=== PATIENT | female | born 1970 | race Caucasian/White ===

== ENCOUNTER 2018-04-09 16:38 | Emergency (ER) | payer OTHER ==
[~2018-04-09] VITALS: Ht 170.2 cm; Wt 83.9 kg
[2018-04-09 17:00] VITALS: BP 129/82; Ht 170.2 cm; Wt 83.9 kg
== END 2018-04-09 19:16 | disposition home or self-care (01) ==
LOC: ED 16:38
DX: J06.9 Acute upper respiratory infection, unspecified (principal); F17.210 Nicotine dependence, cigarettes, uncomplicated; I10 Essential (primary) hypertension; Z86.79 Personal history of other diseases of the circulatory system
CPT/HCPCS: J1100

== ENCOUNTER 2018-04-12 17:41 | Emergency (ER) | payer OTHER ==
[~2018-04-12] VITALS: Ht 165.1 cm; Wt 87.5 kg
[2018-04-12 18:00] VITALS: Ht 165.1 cm; Wt 87.5 kg
[2018-04-12 19:54] VITALS: BP 129/77
== END 2018-04-12 19:54 | disposition home or self-care (01) ==
LOC: ED 17:41
DX: R09.82 Postnasal drip (principal); I10 Essential (primary) hypertension; Z86.79 Personal history of other diseases of the circulatory system

== ENCOUNTER 2019-04-11 12:52 | Emergency (ER) | payer OTHER ==
[~2019-04-11] VITALS: Ht 165.1 cm; Wt 85.3 kg
[2019-04-11 12:56] VITALS: Ht 165.1 cm; Wt 85.3 kg
[2019-04-11 15:31] VITALS: BP 130/85
== END 2019-04-11 15:31 | disposition home or self-care (01) ==
LOC: ED 12:52
DX: J02.9 Acute pharyngitis, unspecified (principal); I10 Essential (primary) hypertension; F17.210 Nicotine dependence, cigarettes, uncomplicated; Z98.890 Other specified postprocedural states
CPT/HCPCS: 87804

== ENCOUNTER 2019-06-25 12:54 | Emergency (ER) | payer OTHER ==
[~2019-06-25] VITALS: Ht 165.1 cm; Wt 85.7 kg
[2019-06-25 13:29] VITALS: BP 130/69; Ht 165.1 cm; Wt 85.7 kg
== END 2019-06-25 15:48 | disposition home or self-care (01) ==
LOC: ED 12:54
DX: S46.912A Strain of unspecified muscle, fascia and tendon at shoulder and upper arm level, left arm, initial encounter (principal); I10 Essential (primary) hypertension; W18.30XA Fall on same level, unspecified, initial encounter; Y93.89 Activity, other specified; Y92.89 Other specified places as the place of occurrence of the external cause; Y99.8 Other external cause status

== ENCOUNTER 2019-06-28 22:37 | Emergency (ER) | payer OTHER ==
[~2019-06-28] VITALS: Ht 165.1 cm; Wt 85.7 kg
[2019-06-28 22:53] VITALS: BP 116/68; Ht 165.1 cm; Wt 85.7 kg
== END 2019-06-29 03:02 | disposition home or self-care (01) ==
LOC: ED 22:37
DX: M25.512 Pain in left shoulder (principal)

== ENCOUNTER 2019-08-13 15:07 | Emergency (ER) | payer OTHER ==
[~2019-08-13] VITALS: Ht 165.1 cm; Wt 77.1 kg
[2019-08-13 15:25] VITALS: Ht 165.1 cm; Wt 77.1 kg
[2019-08-13 17:01] VITALS: BP 119/74
== END 2019-08-13 17:01 | disposition home or self-care (01) ==
LOC: ED 15:07
DX: M79.662 Pain in left lower leg (principal); M79.661 Pain in right lower leg; F17.210 Nicotine dependence, cigarettes, uncomplicated
CPT/HCPCS: J1885; Q0162

== ENCOUNTER 2019-09-11 15:58 | Emergency (ER) | payer OTHER ==
[~2019-09-11] VITALS: Ht 165.1 cm; Wt 72.6 kg
[2019-09-11 16:02] VITALS: Ht 165.1 cm; Wt 72.6 kg
[2019-09-11 21:25] VITALS: BP 112/82
== END 2019-09-11 20:45 | disposition home or self-care (01) ==
LOC: ED 15:58
DX: M54.16 Radiculopathy, lumbar region (principal); M19.071 Primary osteoarthritis, right ankle and foot; F17.210 Nicotine dependence, cigarettes, uncomplicated; W01.0XXA Fall on same level from slipping, tripping and stumbling without subsequent striking against object, initial encounter; Y93.89 Activity, other specified; Y92.89 Other specified places as the place of occurrence of the external cause; Y99.0 Civilian activity done for income or pay
CPT/HCPCS: 99406; J1100; J1885; Q0092

== ENCOUNTER 2019-11-03 15:11 | Emergency (ER) | payer OTHER, SELFPAY ==
[~2019-11-03] VITALS: Ht 165.1 cm; Wt 77.1 kg
[2019-11-03 15:24] VITALS: Ht 165.1 cm; Wt 77.1 kg
[2019-11-03 17:35] LABS: BASOPHIL % 0.5 % (0-2); PLATELET COUNT 319 x10^3mcL (130-400); RED CELL DISTRIBUTION WIDTH 14.3 % (11.5-14.5)
[2019-11-03 17:46] LABS: CARBON DIOXIDE 28.2 mmol/L (21-32); CREATININE SERUM 1.2 mg/dL (0.6-1.0); POTASSIUM SERUM 4.1 mmol/L (3.5-5.1)
[2019-11-03 18:45] VITALS: BP 112/72
== END 2019-11-03 18:45 | disposition home or self-care (01) ==
LOC: ED 15:11
PROVIDERS: Emergency Medicine
DX: R07.89 Other chest pain (principal); I49.9 Cardiac arrhythmia, unspecified; Z20.828 Contact with and (suspected) exposure to other viral communicable diseases
CPT/HCPCS: J1885; Q0092; U0003-CS

== ENCOUNTER 2019-12-09 19:46 | Emergency (ER) | payer OTHER ==
[~2019-12-09] VITALS: Ht 165.1 cm; Wt 90.7 kg
[2019-12-09 20:04] VITALS: Ht 165.1 cm; Wt 90.7 kg
[2019-12-09 21:10] VITALS: BP 123/84
== END 2019-12-09 21:10 | disposition home or self-care (01) ==
LOC: ED 19:46
DX: M75.102 Unspecified rotator cuff tear or rupture of left shoulder, not specified as traumatic (principal); I49.9 Cardiac arrhythmia, unspecified